=== PATIENT | female | born 1985 | race Caucasian/White ===

== ENCOUNTER 2017-01-15 22:23 | Emergency (ER) | payer OTHER ==
[2017-01-15] MEDS ORDERED: HYDROmorphone HCL 2 MG/ML VIAL IV ONE (22:54)
[2017-01-15] MEDS ORDERED: HYDROmorphone HCL 2 MG/ML VIAL ONE (22:56)
[2017-01-15 23:10] LABS: Hematocrit 35.8 % (37.0-47.0); Mean Cell Volume 79.9 fl (78-100); Mean Corpuscular Hemoglobin 26.8 pg (27-31); Mean Corpuscular Hgb Conc 33.5 g/dl (32-36); Mean Platelet Volume 10.3 fl (6.0-9.5); Neutrophil # 7.5 K/mm3 (1.3-6.0); Neutrophil % 65.3 % (42-75.0); Platelet Count 202 K/mm3 (150-450); Red Blood Count 4.48 M/mm3 (4.2-5.4); Red Cell Distribution Width 14.1 % (11.5-14.0); White Blood Count 11.5 K/mm3 (4.0-10.5)
[2017-01-15] MEDS ORDERED: NITROGLYCERIN 0.4 MG/TAB BTL SL ONE ×2 (23:10→23:20)
--- NOTE | 2017-01-15 23:14 | ERNOTE ---
Chest Pain/Cardiac HPI Date of Service: 01/15/17 Chief Complaint: Chest Pain Source: patient Immunizations: IMMUNIZATION HX Immunizations Up to Date No Allergies/Adverse Reactions: Allergies amoxicillin Allergy (Verified 01/15/17 22:59) codeine Allergy (Verified 01/15/17 22:59) erythromycin base Allergy (Verified 01/15/17 22:59) iodine Allergy (Verified 01/15/17 22:59) Penicillins Allergy (Verified 01/15/17 22:59) Home Medications: HOME MEDICATIONS HYDROcodone/ACETAMINOPHEN [[place] 5-325 Tablet] 1 each PO Q4H PRN #10 tablet 10/18 [Last Taken Unknown] Narrative: Patient developed substernal chest pain early this morning. She took some aspirin but it did not help. Saw her PCP this afternoon but she says they did not address it. Pain continued and she says it radiates down her left arm. No SOB, diaphoresis. Is schedule for stress test on 01/18/2017. Review of Systems - Review of Systems Constitutional: Present: no symptoms reported ENT: Present: no symptoms reported Respiratory: Present: no symptoms reported Cardiology: Present: See HPI Gastrointestinal/Abdominal: Present: no symptoms reported Musculoskeletal: Present: no symptoms reported Skin: Present: no symptoms reported Neurological: Present: no symptoms reported - Patient's Past Medical History Patient History - Medical: Seizures Patient History - Cardiac/Respiratory: No pertinent hx Patient History - Cancer: No Hx of Cancer Patient History - Surgical Procedures: Other Patient History - Other: None - Family History Mother Family History - Medical: Diabetes Type 2 Insulin Dependent Family History - Cardiac/Respiratory: Other Family History - Cancer: Breast, Cervical Father Family History - Medical: Diabetes Type 2 Insulin Dependent Family History - Cardiac/Respiratory: History Unknown - Social History Living Situations: significant other Psych History: No pertinent hx Smoking Status: Former smoker Have you smoked in the past 12 months: No Do you dip or chew tobacco: No Alcohol Use: none Drug Use: none - Immunizations Immunizations Up to Date: No Physical Exam - Physical Exam General Appearance: Present: wd/wn, alert, mild distress, obese Eye Exam: Normal inspection: bilateral Ears, Nose, Throat: Present: normal ENT inspection Neck: Present: normal inspection Respiratory: Present: normal breath sounds, lungs clear, decreased breath sounds Cardiovascular/Chest: Present: regular rate, rhythm, systolic murmur Gastrointestinal/Abdominal: Present: nontender, soft Extremity Exam: Present: non-tender, no edema Neurological Exam: Present: alert, oriented ED Progress - Results and Orders Patient's Lab Results:: I have reviewed the patient's lab results. - Vital Signs Patient's Vital Signs:: I have reviewed the patient's vital signs. Vital Signs: Vital Signs 01/15/17 22:33 Temperature 36.6 C Pulse Rate 74 Respiratory 16 Rate Blood Pressure 155/72 - EKG EKG: NSR, nonspecific ST T wave changes - X-Ray X-Ray #1 X-Ray: chest - ?LLL atelectasis - Progress/Reassessment Chief Complaint: Chest Pain Plan - Plan Plan: Home Anti-GERD precautions Follow up with PCP Departure - Departure Clinical Impression: Chest pain, atypical, GERD (gastroesophageal reflux disease) Disposition: Home self-care Condition: Fair Instructions: Food Choices for Gastroesophageal Reflux Disease, Child, Heartburn, [id number] Additional Instructions: Do not eat less than 3 hours before reclining Elevate HOB 10-12 inches Follow up with PCP
[2017-01-15 23:32] LABS: Troponin I Less than 0.017 ng/ml (0.00-0.10)
--- OUTSIDE RECORDS SUMMARY | 2017-01-15 23:35 | XMS REPORT | Continuity of Care Document ---
:1985 Author Organization [facility] ([facility]) Address [address] [place] [address] Phone [phone] Care Team Providers Name Role Phone Nneka Martínez Primary Care Provider [phone] Source Comments This disclosure is being made pursuant to the Care Everywhere program, applicable federal and state laws, and may not contain all informaitonavailable regarding this patient.[facility] ([facility]) Active Allergies and Adverse Reactions Allergen Noted Date Severity Reactions Comments Amoxicillin 04/17/2012 Rash Codeine 04/17/2012 Rash Penicillins 04/17/2012 Rash Current Medications Prescription Sig. Disp. Refills Start Date End Date Status carBAMazepine 200 mg Take 1 Tab by mouth 2 120 Tab 5 04/17/2012 Active tablet times daily. Indications: seizure disorder ranitidine 150 mg Take 1 Tab by mouth 2 120 Tab 5 04/17/2012 Active tablet times daily. Indications: GASTROESOPHAGEAL REFLUX baclofen 10 mg Take 1 Tab by mouth 3 90 Tab 2 04/17/2012 Active tablet times daily as needed. Indications: low back pain sulindac 150 mg Take 1 Tab by mouth 2 120 Tab 2 04/17/2012 Active tablet times daily with meals. Indications: low back pain Active Problems Problem Noted Date Health counseling 04/17/2012 LBP (low back pain) 04/17/2012 GERD (gastroesophageal reflux disease) 04/17/2012 Seizure disorder 04/17/2012 Social History Tobacco Use Types Packs/Day Years Used Date Never Smoker Smokeless Tobacco: Never Used Alcohol Use Drinks/Week oz/Week Comments No Last Filed Vital Signs Vital Sign Reading Time Taken Blood Pressure 135/71 12/10/2015 6:02 PM CDT Pulse 83 12/10/2015 6:02 PM CDT Temperature 36.7 C (98.1 F) 12/10/2015 6:02 PM CDT Respiratory Rate 18 12/10/2015 6:02 PM CDT Height 1.695 m (5' 6.73") 03/21/2001 10:20 PM CDT Weight 174.236 kg (384 lb 1.9 oz) 04/17/2012 10:17 AM CDT Body Mass Index - - Oxygen Saturation 98% 12/10/2015 6:02 PM CDT Plan of Care Patient Goal Type Goal Diet Eat more fruits and vegetables Weight Weight below 91 kg (200 lb) Health Maintenance Due Date Last Done Comments Hepatitis B Vaccine (1 of 3 - Primary Series) 1984 Tdap Vaccine 1995 MMR Vaccine 2002 Td Vaccine 2002 Varicella Vaccine (1 of 2 - Adult - No Evidence of 2002 Immunity) Cervical Cancer Screening 2014 Influenza Vaccine: Seasonal (#1) 03/05/2016 Lipid Disorder Screening 04/17/2017 04/17/2012 Results from Last 3 Months Not on file
--- OUTSIDE RECORDS SUMMARY | 2017-01-15 23:35 | XMS REPORT | Continuity of Care Document ---
:1985 Author Organization [facility] [place] [address] Care Team Providers Name Role Phone Unavailable Primary Care Provider Unavailable Source Comments This disclosure is being made pursuant to the Yellow Pages program and maynot contain all information available regarding this patient.[facility] Active Allergies and Adverse Reactions Not on File Current Medications Be aware that medications may not be up to date as of this document. Alwaysverify current medications with the patient. Not on file Active Problems Not on file Social History Tobacco Use Types Packs/Day Years Used Date Never Assessed Plan of Care Health Maintenance Due Date Last Done Comments Tetanus/Pertussis (1 - Tdap) 2003 Pap Smear 2005 Retired-INFLUENZA VACCINE 04/05/2016 Results from Last 3 Months Not on file
[2017-01-15 23:36] LABS: ALT 16 U/L (19-67); AST 13 U/L (0-48); Albumin * 3.3 gm/dl (3.4-5.0); Alkaline Phosphatase * 84 U/L (50-170); Anion Gap 15.1 mmol/L (6.8-13.8); BUN/Creatinine Ratio 13.6 (9.0-21.6); Bilirubin, Total 0.6 mg/dL (0.0-1.1); Blood Urea Nitrogen 15 mg/dL (3-23); Ca. Corrected For Albumin 8.9 mg/dL (8.4-10.2); Calcium * 8.7 mg/dL (7.9-10.9); Carbon Dioxide 24.3 mmol/L (24-32.6); Chloride 106 mmol/L (97-106); Glucose * 96 mg/dL (70-110); Potassium 3.4 mmol/L (3.4-4.6); Sodium 142 mmol/L (132-142); TSH * 0.447 uIU/mL (0.358-3.74); Total Protein 7.1 gm/dL (6.2-8.2)
[2017-01-16] MEDS ORDERED: MAG HYDROX/ALUMINUM HYD/SIMETH 30 ML UDC PO ONE (00:01)
[2017-01-16] MEDS ORDERED: SUCRALFATE 1 G/10 ML UDC PO ONE (00:01)
[2017-01-16] MEDS ORDERED: LIDOCAINE HCL 20 ML UDC PO ONE (00:01)
[2017-01-16 00:13] VITALS: BP 121/65
== END 2017-01-16 00:30 | disposition home or self-care (01) ==
LOC: ER 22:23
DX: R07.89 Other chest pain (principal); K21.9 Gastro-esophageal reflux disease without esophagitis; Z87.891 Personal history of nicotine dependence